=== PATIENT | female | born 1980 | race Caucasian/White ===

== ENCOUNTER 2016-11-26 13:21 | Emergency (ER) | payer MEDICAID ==
[~2016-11-26] VITALS: Ht 162.6 cm; Wt 76.0 kg
[~2016-11-26 13:21] MED LIST: IUD
[2016-11-26 13:28] VITALS: Ht 162.6 cm; Wt 76.0 kg
[2016-11-26] MEDS ORDERED: ACETAMINOPHEN 500 MG TAB PO STA (14:58)
--- NOTE | 2016-11-26 14:58 | ERD ---
ER Documentation Chief Complaint Date/Time DATE: 11/26/16 TIME: 14:57 Chief Complaint vaginal bleeding,3 weeks ,pelvic pain. HPI This is a 35-year-old female who presents the emergency department today complaining of vaginal bleeding for the past 3 days. Patient states that she was sent by her clinic today for further evaluation she had a positive test. States that her last menstrual period was on August 02, 2016 she had been using a NuvaRing at that time. She took the NuvaRing out. States she has some crampy lower abdominal pain. Denies any fevers or chills, vomiting. ROS All systems reviewed and are negative except as per history of present illness. Medications Home Meds Active Scripts Acetaminophen* (Tylophen*) 500 Mg Capsule, 1 CAP PO Q6H Y for PAIN AND OR ELEVATED TEMP, #30 CAP Prov:KRZYSZTOF HENDRIX PA-C 11/26/16 Reported Medications [Iud] No Conflict Check 01/13/12 Allergies Allergies: Coded Allergies: No Known Allergy (Unverified , 06/25/15) PMhx/Soc History of Surgery: No Anesthesia Reaction: No Hx Neurological Disorder: No Hx Respiratory Disorders: No Hx Cardiac Disorders: No Hx Psychiatric Problems: No Hx Miscellaneous Medical Probl: Yes (KIDNEY STONES, spontaneous 02/2015 ) Hx Alcohol Use: No Hx Substance Use: No Hx Tobacco Use: No Physical Exam Vitals Vital Signs Date Time Temp Pulse Resp B/P Pulse Ox O2 Delivery O2 Flow Rate FiO2 11/26/16 13:28 97.4 82 18 119/70 98 Physical Exam Const: NAD Head: Atraumatic Eyes: Normal Conjunctiva ENT: Normal External Ears, Nose and Mouth. Neck: Full range of motion..~ No meningismus. Resp: Clear to auscultation bilaterally Cardio: Regular rate and rhythm, no murmurs Abd: Soft, suprapubic tenderness, non distended. Normal bowel sounds Skin: No petechiae or rashes Back: No midline or flank tenderness Ext: No cyanosis, or edema Neur: Awake and alert Psych: Normal Mood and Affect Result Diagram: 11/26/16 4280 Results 24 hrs Laboratory Tests Test 11/26/16 15:26 11/26/16 16:55 Urine Color YELLOW Urine Clarity CLOUDY Urine pH 7.0 Urine Specific [place] 1.023 Urine Ketones NEGATIVEmg/dL Urine Nitrite NEGATIVEmg/dL Urine Bilirubin NEGATIVEmg/dL Urine Urobilinogen 2+mg/dL Urine Leukocyte Esterase NEGATIVELeu/ul Urine Microscopic RBC 39/HPF Urine Microscopic WBC 0/HPF Urine Amorphous Crystals FEW/HPF Urine Hemoglobin 2+mg/dL Urine Glucose NEGATIVEmg/dL Urine Total Protein NEGATIVEmg/dl White Blood Count 9.710^3/ul Red Blood Count 4.5910^6/ul Hemoglobin 13.3g/dl Hematocrit 39.8% Mean Corpuscular Volume 86.7fl Mean Corpuscular Hemoglobin 29.0pg Mean Corpuscular Hemoglobin Concent 33.4g/dl Red Cell Distribution Width 12.6% Platelet Count 92961^3/UL Mean Platelet Volume 10.6fl Neutrophils % 55.2% Lymphocytes % 34.5% Monocytes % 5.9% Eosinophils % 3.3% Basophils % 0.8% Nucleated Red Blood Cells % 0.0/100WBC Neutrophils # 5.410^3/ul Lymphocytes # 3.310^3/ul Monocytes # 0.610^3/ul Eosinophils # 0.310^3/ul Basophils # 0.110^3/ul Nucleated Red Blood Cells # 0.010^3/ul Beta HCG, Quantitative 1676.9mIU/ml Current Medications Medications (Trade) Dose Ordered Sig/Bhavna Route PRN Reason Start Time Stop Time Status Last Admin Dose Admin Acetaminophen (Tylenol Tab) 500 mg ONCE STAT PO 11/26/16 14:58 11/26/16 14:59 DC 11/26/16 15:37 DIAGNOSTIC IMAGING REPORT Patient: AFSANEH CORREA : 1980 Age: 35 Sex: F [id number] DOS: 11/26/16 1542 Ordering MD: KRZYSZTOF HENDRIX PA-C Location: [facility] Room/Bed: PROCEDURE: OB Ultrasound. CLINICAL INDICATION: Positive test. Vaginal bleeding. TECHNIQUE: Ultrasound of the pelvis was performed with transabdominal and transvaginal sonography in the axial and sagittal planes. COMPARISON: No prior study is available for comparison. FINDINGS: There is no intrauterine gestational sac. The uterus measures 8.1 x 4.4 x 4.9 cm. Endometrial thickness is 10.5 mm. There is no uterine enlargement or mass. The right ovary appears normal measuring 3.5 x 1.8 x 2.6 cm. The left ovary appears normal measuring 3.9 x 1.4 x 2.1 cm. Color Doppler and pulsed Doppler sonography demonstrate normal flow to the ovaries. There is no other pelvic mass or free fluid. IMPRESSION: 1. No intrauterine gestational sac. If the patient has a positive test, ectopic gestation cannot be excluded. 2. Otherwise unremarkable study. RPTAT: QQ .Kash Arana MD, MD Date Time Electronically viewed and signed by .Kash Arana MD, MD on 11/26/2016 16:18 .R/ CC: KRZYSZTOF HENDRIX PA-C Procedures/MDM This is a A3 35-year-old female who presents to the emergency department today complaining of vaginal bleeding. Patient states she is approximately 3 weeks . She was sent by her primary care clinic for further evaluation. Given this I did obtain a complete OB workup. Laboratory work shows no elevated white blood cell count. She is not anemic. Platelets are within normal limits. UA is negative for infection Beta quant hCG 1676.9 Rh status O+ Ultrasound is no intrauterine gestational sac. There is normal Doppler flow to both ovaries. There is no other pelvic mass or free fluid. Patient symptoms at this time is consistent with vaginal bleeding in early . Other differentials to consider early normal versus early failed is ectopic . Patient is afebrile and otherwise well-appearing. Low suspicion for tubo- ovarian abscess, ovarian torsion. At this time I cannot exclude ectopic . I placed a call to the laborist non destructive tester, Dr. Navarro, who felt that the patient could be safely discharged home and asked to repeat beta quant in 48 hours. I did explain to the patient that she may continue to have vaginal bleeding. I have explained the results to the patient. I have explained to the patient that they need to follow-up in 48 hours for a repeat beta quant. Given Tylenol here in the emergency department. She was given a prescription for home. At this time the patient is stable for discharge and outpatient management. Patient should follow up with their PCP in the next 1-2 days. They may return to the emergency department sooner for any persistent or worsening of symptoms. Patient understood and agreed with the plan. Departure Diagnosis: Primary Impression: Vaginal bleeding in patient at less than 20 weeks gestation Condition: KRZYSZTOF Desai PA-C Nov 26, 2016 14:58
--- NOTE | 2016-11-26 16:18 | RADRPT ---
PROCEDURE: OB Ultrasound. CLINICAL INDICATION: Positive test. Vaginal bleeding. TECHNIQUE: Ultrasound of the pelvis was performed with transabdominal and transvaginal sonography in the axial and sagittal planes. COMPARISON: No prior study is available for comparison. FINDINGS: There is no intrauterine gestational sac. The uterus measures 8.1 x 4.4 x 4.9 cm. Endometrial thickn ess is 10.5 mm. There is no uterine enlargement or mass. The right ovary appears normal measuring 3.5 x 1.8 x 2.6 cm. The left ovary appears normal measuring 3.9 x 1.4 x 2.1 cm. Color Doppler and pulsed Doppler sonography demonstrate normal flow to the ovaries. There is no other pelvic mass or free fluid. IMPRESSION: 1. No intrauterine gestational sac. If the patient has a positive test, ectopic gestation cannot be excluded. 2. Otherwise unremarkable study. RPTAT: QQ .Kash Arana MD, MD Date Time Electronically viewed and signed by .Kash Arana MD, on 11/26/2016 16:18 .R/
[2016-11-26 16:38] LABS: ADD UMIC YES; UR AMORPHOUS CRYSTAL FEW /HPF (NONE SEEN); UR ASCORBIC ACID 40 mg/dL (NEGATIVE); UR BILIRUBIN (Dip) NEGATIVE (NEGATIVE); UR BLOOD (Dip) 2+ mg/dL (NEGATIVE); UR CLARITY CLOUDY (CLEAR); UR COLOR YELLOW (YELLOW); UR GLUCOSE (Dip) NEGATIVE (NEGATIVE); UR KETONES (Dip) NEGATIVE (NEGATIVE); UR LEUKOCYTE ESTERASE (Dip) NEGATIVE Leu/ul (NEGATIVE); UR NITRITE (Dip) NEGATIVE (NEGATIVE); UR RBC 39 /HPF (0-5); UR SPECIFIC GRAVITY (Dip) 1.023 (1.003-1.030); UR TOTAL PROTEIN (Dip) NEGATIVE (NEGATIVE); UR UROBILINOGEN (Dip) 2+ mg/dL (NEGATIVE)
[2016-11-26 17:01] LABS: BASOPHIL # 0.1 10^3/ul (0.0-0.1); BASOPHILS % 0.8 % (0.0-2.0); EOSINOPHILS # 0.3 10^3/ul (0.0-0.5); EOSINOPHILS % 3.3 % (0.0-7.0); HEMATOCRIT 39.8 % (37.0-47.0); HEMOGLOBIN 13.3 g/dl (12.0-16.0); LYMPHOCYTES # 3.3 10^3/ul (0.8-2.9); LYMPHOCYTES % 34.5 % (15.0-51.0); MEAN CORPUSCULAR HGB CONC 33.4 g/dl (32.0-37.0); MEAN CORPUSCULAR VOLUME 86.7 fl (82.0-101.0); MEAN PLATELET VOLUME 10.6 fl (7.4-10.4); MONOCYTE # 0.6 10^3/ul (0.3-0.9); MONOCYTES % 5.9 % (0.0-11.0); NEUTROPHIL # 5.4 10^3/ul (1.6-7.5); NEUTROPHILS % 55.2 % (39.0-77.0); PLATELET COUNT 243 10^3/UL (140-415); RED BLOOD COUNT 4.59 10^6/ul (4.20-5.40); RED CELL DISTRIBUTION WIDTH 12.6 % (11.5-14.5); WHITE BLOOD COUNT 9.7 10^3/ul (4.8-10.8)
[2016-11-26] MEDS ORDERED: ACET500C5 PO (18:21)
[2016-11-26 18:33] VITALS: BP 118/70; PULSE 65; RESP 18; TEMP 97.4
== END 2016-11-26 18:30 | disposition home or self-care (01) ==
LOC: FTE 13:21
DX: O20.9 Hemorrhage in early pregnancy, unspecified (principal); R10.2 Pelvic and perineal pain; Z3A.01 Less than 8 weeks gestation of pregnancy
CPT/HCPCS: 76801; 76817; 81001; 84702; 85025; 86900; 86901; Z7502; Z7610